=== PATIENT | female | born 1955 | race Hispanic/Latino ===

== ENCOUNTER 2018-10-14 08:05 | Emergency (ER) | payer OTHER, MEDICARE ==
[~2018-10-14 08:05] MED LIST: AMLO5TAB7 PO; BUDE10.2 IH; CALC-1038 PO; CHOL100018 PO; ESTR0.5T PO; FLUT220HFA IH; GABA-531 PO; HYDR25TA PO; LEVO750T46 PO; MEDR2.5T PO; PANT40TA25 PO; SERT50TA12 PO
== END 2018-10-14 10:59 | disposition home or self-care (01) ==
LOC: EDH 08:05
DX: J20.9 Acute bronchitis, unspecified (principal); Z98.890 Other specified postprocedural states; Z88.8 Allergy status to other drugs, medicaments and biological substances
CPT/HCPCS: 71045

== ENCOUNTER → 2019-06-25 | Outpatient (CLI) | payer OTHER, MEDICARE ==
[~2019-06-25] MED LIST changes: -AMLO5TAB7 PO; +AMLO5TAB9 PO
== END | disposition home or self-care (01) ==
LOC: RAH 09:28
PROVIDERS: ATTEND Family Medicine
DX: Z12.31 Encounter for screening mammogram for malignant neoplasm of breast (principal)
CPT/HCPCS: 77067

== ENCOUNTER → 2020-02-14 | Outpatient (CLI) | payer OTHER, MEDICARE ==
[~2020-02-14] MED LIST changes: +IOHEXOL-350 75 ML VIAL IV ONE
== END | disposition home or self-care (01) ==
LOC: RAH 07:57
PROVIDERS: ATTEND Family Medicine
DX: K57.30 Diverticulosis of large intestine without perforation or abscess without bleeding (principal)
CPT/HCPCS: 74177; Q9967

== ENCOUNTER → 2020-06-26 | Outpatient (CLI) | payer OTHER, MEDICARE ==
[~2020-06-26] MED LIST changes: -IOHEXOL-350 75 ML VIAL IV ONE
== END | disposition home or self-care (01) ==
LOC: RAH 15:11
PROVIDERS: ATTEND Family Medicine
DX: Z12.31 Encounter for screening mammogram for malignant neoplasm of breast (principal)
CPT/HCPCS: 77067

== ENCOUNTER → 2021-06-27 | Outpatient (CLI) | payer OTHER, MEDICARE ==
[~2021-06-27] MED LIST changes: +AMLO-257 PO; -AMLO5TAB9 PO; -PANT40TA25 PO; +PANT40TA54 PO; +SERT-439 PO; -SERT50TA12 PO
== END | disposition home or self-care (01) ==
LOC: RAH 15:57
PROVIDERS: ATTEND Family Medicine
DX: Z12.31 Encounter for screening mammogram for malignant neoplasm of breast (principal)
CPT/HCPCS: 77067

== ENCOUNTER → 2023-11-10 | Outpatient (CLI) | payer OTHER, MEDICARE ==
[~2023-11-10] MED LIST changes: -ESTR0.5T PO; +ESTR0.5T2 PO; +LEVO750T39 PO; -LEVO750T46 PO
== END | disposition home or self-care (01) ==
LOC: RAH 08:38
PROVIDERS: ATTEND Family Medicine
DX: Z12.31 Encounter for screening mammogram for malignant neoplasm of breast (principal); R92.30 Dense breasts, unspecified
CPT/HCPCS: 77067

== ENCOUNTER → 2024-03-18 | Outpatient (CLI) | payer OTHER, MEDICARE ==
[~2024-03-18] MED LIST changes: +IOHEXOL-350 75 ML VIAL IV ONE
== END | disposition home or self-care (01) ==
LOC: RAH 07:30
PROVIDERS: ATTEND Internal Medicine
DX: R10.32 Left lower quadrant pain (principal); J84.10 Pulmonary fibrosis, unspecified; M47.815 Spondylosis without myelopathy or radiculopathy, thoracolumbar region
CPT/HCPCS: 74178; Q9967

== ENCOUNTER → 2024-11-11 | Outpatient (CLI) | payer OTHER, MEDICARE ==
[~2024-11-11] MED LIST changes: -IOHEXOL-350 75 ML VIAL IV ONE; -LEVO750T39 PO; +LEVO750T40 PO
--- NOTE | 2024-11-11 10:05 | HMCIMG ---
SCREENING MAMMOGRAM REASON: Annual Exam COMPARISON: 11/10/2023 TECHNIQUE: CC and MLO views of the bilateral breasts were performed.CAD was performed as well. FINDINGS: Parenchymal density: There are scattered areas of fibroglandular density. There are no focal mass lesions. There are no pathologic appearing calcifications. There is no evidence of architectural distortion or skin thickening. IMPRESSION: Normal screening mammogram The patient was entered into a reminder system with a target due date for their next mammogram. BI-RADS CATEGORY 1: NEGATIVE Recommend monthly self breast exam as well as annual clinical examination. A negative x-ray should not delay biopsy if a dominant or clinically suspicious mass is present, since 8-10% of cancers are not identified by mammography. Dense breasts particularly, may obscure an underlying neoplasm. Some of these may be detected clinically and therefore, clinical examination is an essential part of breast evaluation.
== END | disposition home or self-care (01) ==
LOC: RAH 08:52
PROVIDERS: ATTEND Family Medicine
DX: Z12.31 Encounter for screening mammogram for malignant neoplasm of breast (principal); R92.323 Mammographic fibroglandular density, bilateral breasts
CPT/HCPCS: 77067